=== PATIENT | male | born 1950 | race Caucasian/White ===

== ENCOUNTER → 2017-06-17 | Outpatient (CLI) | payer BC ==
[~2017-06-17] MED LIST: REGADENOSON 0.4 MG/5 ML DISP.SYRIN. IV ONE
--- NOTE | 2017-06-17 09:25 | PCVCIMAG ---
APPROVED REPORT Study performed: 06/17/2017 07:34:09 EXAM: Comprehensive 2D, Doppler, and color-flow Echocardiogram Patient Location: Echo lab Status: routine BSA: 2.26 HR: 56 bpmBP: 132/82 mmHg Rhythm: NSR Other Information Study Quality: Adequate Indications Dyspnea TIA symptoms, HLP 2D Dimensions LVEF(%): 57.11 (>50%) IVSd: 12.22 (7-11mm) LVDd: 49.64 mm PWd: 10.71 (7-11mm) LVDs: 34.72 (25-40mm) Left Atrium: 42.33 (27-40mm) Aortic Root: 31.83 mm LV Single Plane 4CH: 59.25 % LV Single Plane 2CH: 59.20 %Mckeon's LVEF: 59.22 % Biplane EF: 59.6 % Volumes Left Atrial Volume (Systole) Single Plane 4CH: 69.42 mLSingle Plane 2CH: 85.31 mL LA ESV Index: 35.00 mL/m2 Aortic Valve AoV Peak Zechariah.: 1.40 m/s AO Peak Gr.: 7.81 mmHgLVOT Max P.64 mmHg LVOT Max V: 1.08 m/s Mitral Valve E/A Ratio: 1.1 MV Decel. Time: 221.79 ms MV E Max Zechariah.: 0.47 m/s MV A Zechariah.: 0.43 m/s IVRT: 138.41 ms Pulmonary Valve PV Peak Zechariah.: 0.90 m/sPV Peak Gr.: 3.22 mmHg Pulmonary Vein P Vein S: 0.29 m/sP Vein A: 0.26 m/s P Vein D: 0.38 m/sP Vein A Dur.: 138.4 msec P Vein S/D Ratio: 0.76 Tricuspid Valve TR Peak Zechariah.: 2.03 m/s TR Peak Gr.: 16.50 mmHg Left Ventricle The left ventricle is normal size. There is normal LV segmental wall motion. There is normal left ventricular wall thickness. Left ventricular systolic function is normal. The left ventricular ejection fraction is within the normal range. LVEF is 55-60%. Grade I - abnormal relaxation pattern. Right Ventricle The right ventricle is normal size. The right ventricular systolic function is normal. Atria The left atrium size is normal. The right atrium size is normal. Aortic Valve The aortic valve is normal in structure. Trace aortic regurgitation. There is no aortic valvular stenosis. Mitral Valve The mitral valve is normal in structure. Trace mitral regurgitation. No evidence of mitral valve stenosis. Tricuspid Valve The tricuspid valve is normal in structure. Trace tricuspid regurgitation with PAP of 24 mmHg. Pulmonic Valve The pulmonary valve is normal in structure. There is no pulmonic valvular regurgitation. Great Vessels The aortic root is normal in size. IVC is normal in size and collapses with >50% inspiration Pericardium There is no pericardial effusion. <Conclusion> The left ventricle is normal size. Left ventricular systolic function is normal. Grade I - abnormal relaxation pattern. The right ventricle is normal size. The left atrium size is normal. Trace aortic regurgitation. Trace mitral regurgitation. Trace tricuspid regurgitation with PAP of 24 mmHg.
--- NOTE | 2017-06-17 11:29 | PCVCIMAG ---
APPROVED REPORT Exam: Nuclear Stress Test Indication: Dyspnea on Exertion Patient Location: Out-Patient Stress Nurse: Kamryn Lubin RN, Sally Tavarez RN CT Tech:Mariana CRISTIAN McmillanMT Ht: 6 ft 0 in Wt: 227 lbs BSA: 2.25 m2 HR: 56 bpm BP: 166/81 mmHg BMI: 30.7 Rhythm: SB W/ PAC AND PVC Medical History Medical History: HTN, Hyperlipidemia, CVD, Age, Chews tobacco Medications: Lipitor, ASA Allergies: Sulfa Pretest Chest Pain Characteristics: No chest pain Exercise History: Physically active Stress Test Details Stress Test: Pharmacologic stress was paired with low level exercise. Reason for pharmacologic stress test: physical limitation. HR Resting HR: 56 bpmMax Heart Rate (APMHR): 156 bpm Max HR Achieved: 85 bpmTarget HR (85% APMHR): 132 bpm % of APMHR: 54 Recovery HR: 68 bpm BP Resting BP: 166/81 mmHg Max BP: 136/78 mmHg ECG Resting ECG: Sinus Rhythm with PAC and PVC Stress ECG: Sinus Rhythm ST Change: Non-ischemic Recovery ECG: Sinus Rhythm Clinical Reason for Termination: Completed protocol Stress Symptoms: Light-headed Exercise duration: 4 min 00 sec Exercise capacity: 1.6 METs Symptoms resolved during recovery. NM EXAM: Myocardial Perfusion REST/STRESS Imaging Protocol: Rest Tc-99m/Stress Tc-99m 1 day Resting Data Rest SPECT myocardial perfusion imaging was performed in supine position 45 minutes following the intravenous injection of 11.1 mCi of Tc-99m Sestamibi. Time of rest injection: 819 Date: 06/17/2017 Administration Route: IV Administration Site: Right AC Pharmacologic Stress Pharmacologic stress test was performed by injecting Regadenoson 0.4 mg IV push followed by the intravenous injection of 35.7 mCi of Tc-99m Sestamibi. Time of stress injection: 929 Date: 06/17/2017 Administration Route: IV Administration Site: Right AC Gated Stress SPECT was performed 45 minutes after stress injection. The images were gated to evaluate regional wall motion and calculate left ventricular ejection fraction. Study Quality Study: Good Artifact: Mild Diaphragmatic artifact Study Data Post stress, the left ventricular ejection was 60%.. SSS: 0 SRS: 0 SDS: 0 TID = 1.08. Perfusion There is a small area of mildly reduced uptake in the basal segment of the inferior wall which is seen on the stress images as well as the resting images. This area thickens and moves normally and is most consistent with attenuation artifact. Wall Motion Normal left ventricular wall motion. Nuclear Conclusion ECG Findings: negative for ischemia Clinical Findings: non-diagnostic Nuclear Findings: negative for ischemia This study is of low probability for inducible ischemia or prior infarct. Normal global and segmental LV systolic function. Artifact: Mild Diaphragmatic artifact
== END | disposition home or self-care (01) ==
LOC: PCVCIMAG 07:29
PROVIDERS: ATTEND Internal Medicine Cardiovascular Disease
DX: G45.9 Transient cerebral ischemic attack, unspecified (principal); I10 Essential (primary) hypertension; E78.00 Pure hypercholesterolemia, unspecified; R06.09 Other forms of dyspnea; Z79.899 Other long term (current) drug therapy; Z79.82 Long term (current) use of aspirin; Z72.0 Tobacco use
CPT/HCPCS: 36415; 78452; 93005; 93017; 93306; A9500; J2785